=== PATIENT | female | born 1960 | race Caucasian/White ===

== ENCOUNTER 2016-05-30 22:10 | Emergency (ER) | payer BC, OTHER ==
[2016-05-30] MEDS ORDERED: Pepcid 20 MG VIAL IV ONE ×2 (23:05→23:38)
--- NOTE | 2016-05-30 23:10 | ERPHSYRPT ---
- History of Present Illness Time Seen by Provider: 05/30/16 23:06 Source: patient Exam Limitations: no limitations Patient Subjective Stated Complaint: Pt sts seen at clinic today for sore, earache, headache today. Given a shot of steroids at clinic. Sts that her tongue has swollen since clinic visit. Sts difficulty swallowing. Denies shortness of breath. Sts pain 10/10 in throat. Triage Nursing Assessment: Pt alert, oriented, answers all questions appropriately. Skin p/w/d, resps non-labored. Pt ambulatory to tx room, steady gait noted. SPO2 96% room air. No exudate noted to throat, posterior pharynx reddened. Tongue appears swollen. Pt able to control secretions. Lungs CTA bilat non-labored. Physician History: Is a 56-year-old white female with history of depression and insomnia. She arrives with complaint that she feels like her tongue is swelling she apparently has been complaining of headaches sore throat symptoms going on for several days she was seen at the clinic today given a shot of steroids told she had a viral syndrome She states that she feels as if her tongue is of swelling and it hurts to swallow. Past medical history includes depression, insomnia. Past surgical history includes hysterectomy and orthopedic surgery. Patient is on hydrocodone 7.5/325 at home last filled on the May 09, 2016 # 60 tablets. Patient is also on Xanax 2 mg #30 last filled May 13, 2016 Timing/Duration: today Severity: moderate Modifying Factors: Improves With: other (receives steroid injection today) Associated Symptoms: headaches, other (sore throat and headache seen in office today) Allergies/Adverse Reactions: No Known Drug Allergies Allergy (Verified 05/30/16 22:37) Home Medications: Alprazolam [Xanax 0.5 mg] 0.5 mg PO DAILY PRN 02/03/15 [History] Duloxetine HCl 30 mg [Cymbalta 30 MG Capsule] 90 mg PO DAILY 02/03/15 [ History] Hydrocodone Bit/Acetaminophen [[place] 5-325 Tablet] 1 each PO Q6H PRN 05/30/16 [ History] Trazodone HCl 100 mg PO HS 05/30/16 [History] Hx Tetanus, Diphtheria Vaccination/Date Given: No Hx Influenza Vaccination/Date Given: Yes Hx Pneumococcal Vaccination/Date Given: No - Review of Systems Constitutional: No Fever, No Chills Eyes: No Symptoms Ears, Nose, & Throat: Throat Pain, Painful Swallowing, Other (patient feels as if her tongue is swelling), No Ear Pain, No Ear Discharge, No Hearing Changes, No Tinnitus, No Nose Pain, No Nose Congestion, No Nose Discharge, No Sinus Drainage, No Epistaxis, No Mouth Pain, No Mouth Swelling, No Loose Teeth, No Throat Swelling, No Hoarse, No Snoring, No Stridor Respiratory: No Cough, No Dyspnea Cardiac: No Chest Pain, No Edema, No Syncope Abdominal/Gastrointestinal: No Abdominal Pain, No Nausea, No Vomiting, No Diarrhea Genitourinary Symptoms: No Dysuria Musculoskeletal: No Back Pain, No Neck Pain Skin: No Rash Neurological: No Dizziness, No Focal Weakness, No Sensory Changes Psychological: No Symptoms Endocrine: No Symptoms All Other Systems: Reviewed and Negative - Past Medical History Pertinent Past Medical History: Yes Psycho-Social History: Depression Other Medical History: INSOMNIA - Past Surgical History Past Surgical History: Yes Musculoskeletal: Orthopedic Surgery Female Surgical History: Hysterectomy - Social History Smoking Status: Never smoker Exposure to second hand smoke: No Drug Use: none Patient Lives Alone: No - Female History Hx Last Menstrual Period: hyst - Nursing Vital Signs Nursing Vital Signs: Initial Vital Signs Temperature 99.5 F Temperature Source Oral Pulse Rate 76 Respiratory Rate 16 Blood Pressure [Left Arm] 130/76 Pain Intensity 5 - Physical Exam General Appearance: no apparent distress, alert Eye Exam: PERRL/EOMI, eyes nml inspection Ears, Nose, Throat Exam: normal ENT inspection, TMs normal, pharynx normal, moist mucous membranes Neck Exam: normal inspection, non-tender, supple, full range of motion Respiratory Exam: normal breath sounds, lungs clear, No respiratory distress Cardiovascular Exam: regular rate/rhythm, normal heart sounds, normal peripheral pulses Gastrointestinal/Abdomen Exam: soft, normal bowel sounds, No tenderness, No mass Back Exam: normal inspection, normal range of motion, No CVA tenderness, No vertebral tenderness Extremity Exam: normal inspection, normal range of motion, pelvis stable Neurologic Exam: alert, oriented x 3, cooperative, normal mood/affect, nml cerebellar function, nml station & gait, sensation nml, No motor deficits Skin Exam: normal color, warm, dry, No rash Lymphatic Exam: No adenopathy SpO2 Interpretation: normal (98%) SpO2: 98 Oxygen Delivery: Room Air - Course Nursing assessment & vital signs reviewed: Yes Ordered Tests: Active Orders 24 hr Category Date Time Status IV Insertion STAT Care 05/30/16 23:05 Active CULTURE, THROAT Stat Lab 05/30/16 23:20 Received STREP SCREEN-BETA A Stat Lab 05/30/16 23:20 Completed Medication Summary Discontinued Medications Generic Name Dose Route Start Last Admin Trade Name Rasheedq PRN Reason Stop Dose Admin Diphenhydramine HCl 25 mg 05/31/16 00:51 05/31/16 01:23 Benadryl 50 Mg/Ml IM 05/31/16 00:52 Not Given STAT ONE Diphenhydramine HCl Confirm 05/31/16 01:08 Benadryl 50 Mg/Ml Administered 05/31/16 01:09 Dose 50 mg .ROUTE .STK-MED ONE Diphenhydramine HCl 25 mg 05/31/16 01:16 05/31/16 01:22 Benadryl 50 Mg/Ml IV 05/31/16 01:17 25 mg STAT ONE Administration Famotidine 20 mg 05/30/16 23:05 05/30/16 23:42 Pepcid 20 Mg Vial IV 05/30/16 23:06 20 mg STAT ONE Administration Famotidine Confirm 05/30/16 23:38 Pepcid 20 Mg Vial Administered 05/30/16 23:39 Dose 20 mg IV .STK-MED ONE Morphine Sulfate 4 mg 05/31/16 00:52 05/31/16 01:12 Morphine Sulfate 4 Mg Inj IV 05/31/16 00:53 4 mg STAT ONE Administration Morphine Sulfate Confirm 05/31/16 01:08 Morphine Sulfate 4 Mg Inj Administered 05/31/16 01:09 Dose 4 mg .ROUTE .STK-MED ONE Lab/Rad Data: Laboratory Results 05/30/16 05/30/16 Range/Units 23:20 23:20 Streptococcus Screen NEGATIVE (Negative) Resp Infection Panel NEGATIVE (Negative) - Progress Progress: improved Progress Note: 05/30/16 23:09 This is a 56-year-old white female who arrives with complaints that she feels like her tongue is swelling she apparently had been complaining of a headache and sore throat was given steroid injection at the local clinic she states she did not have her throat swabbed. On physical examination patient airway is clear tongue does not appear to be swollen at my examination. Will go ahead and give patient Pepcid 20 mg IV will go ahead and obtain respiratory swab as well as strep test. Patient is on [place] 7.5/325 chronically she received a refill of this on May 09, 2016. 05/31/16 01:24 Patient feeling better after Pepcid IV 20 mg, Benadryl 25 mg IV and morphine 4 mg IV. Patient states she still has some pain in her throat but is improved pain as well as swallowing. No obvious swelling of the patient's tongue. Will send patient home with Pepcid 20 mg orally twice a day for 5 days. Patient to continue Benadryl 25-50 mg orally every 6 hours as needed for 2-3 days. Patient has narcotic analgesia at home Patient to follow-up with your family doctor - Departure Time of Disposition: 01:26 Departure Disposition: Home Clinical Impression: Throat pain, Tongue swelling, rule out allergy to Solu-Medrol Condition: Fair Critical Care Time: No Referrals: JAYY GALLEGOS [Primary Care Provider] - Additional Instructions: Return home. Plenty of fluids. Benadryl 25-50 mg orally every 6 hours as needed for 2-3 days. Pepcid 20 mg orally twice a day for 5 days Pain medications as prescribed by your family doctor Follow-up with your family doctor. Return for acute distress or for severe symptoms Prescriptions: Famotidine 20 mg [Pepcid 20 MG] 20 mg PO BID #10 tablet
[2016-05-31] MEDS ORDERED: MORPHINE SULFATE 4 MG INJ IV ONE (00:52)
[2016-05-31] MEDS ORDERED: MORPHINE SULFATE 4 MG INJ ONE (01:08)
[2016-05-31] MEDS ORDERED: BENADRYL 50 MG/ML ONE (01:08)
[2016-05-31] MEDS: BENADRYL 50 MG/ML IM ONE ×2 (01:11→01:23)
[2016-05-31] MEDS ORDERED: BENADRYL 50 MG/ML IV ONE (01:16)
[2016-05-31 01:20] VITALS: PULSE 76
[2016-05-31 01:51] VITALS: BP 138/82; O2SAT 97
== END 2016-05-31 01:55 | disposition home or self-care (01) ==
LOC: ED 22:10
DX: R07.0 Pain in throat (principal); R22.0 Localized swelling, mass and lump, head; T38.0X5A Adverse effect of glucocorticoids and synthetic analogues, initial encounter
CPT/HCPCS: 36000; 87070; 87430; 87631; 96374; 96375; 99283; 99284; J1200; J2270

== ENCOUNTER 2016-11-05 08:30 | Day surgery (SDC) | payer BC ==
[~2016-11-05 08:30] MED LIST: DIPRIVAN 200 MG/20 ML IV ONE; SUBLIMAZE 100 MCG/2 ML IV ONE
[2016-11-05] MEDS ORDERED: Lactated Ringers 1,000 ML IV ONE (08:51)
[2016-11-05] MEDS ORDERED: Zofran 4 MG/2 ML VIAL IV PRN (09:00)
[2016-11-05] MEDS ORDERED: Lactated Ringers 1,000 ML IV SCH (09:00)
[2016-11-05] MEDS ORDERED: Ak-Dilate OPHTHALMIC*** 0.71 ML, Cyclogyl 1% OPHTH SOL 5 ML 0.71 ML, GATIFLOXACIN 0.5% ... OP ONE ×4 (09:00)
[2016-11-05] MEDS ORDERED: ACETAZOLAMIDE 250 MG TABLET PO ONE (09:00)
[2016-11-05] MEDS ORDERED: TETRACAINE 0.5% STERI-UNIT SOL OP ONE ×2 (09:00)
[2016-11-05] MEDS ORDERED: BETADINE 5% OPHTHALMIC 30 ML OP ONE (09:00)
[2016-11-05] MEDS ORDERED: BSS 500 ML, Fortaz/Tazicef 1 GM** 0.2 G IO ONE ×2 (10:00)
[2016-11-05] MEDS ORDERED: LIDOCAINE HCL 1% AMPUL 5 ML IJ ONE (10:00)
[2016-11-05] MEDS ORDERED: Epinephrine Preservative Free 1 MG/ML INTRAOP ONE (10:00)
[2016-11-05 12:41] VITALS: O2SAT 100
[2016-11-05 12:45] VITALS: BP 146/85; PULSE 75
--- NOTE | 2016-11-05 13:38 | OP ---
DATE/TIME OF OPERATION: 11/05/2016 1019 PREOPERATIVE DIAGNOSIS: Senile cataract of left eye. POSTOPERATIVE DIAGNOSIS: Senile cataract of left eye. SURGEON: James Lala MD TRAPEZE ARTIST: NONE OPERATION: Cataract extraction of left eye with an intraocular lens implant STANDARD __X___ COMPLEX ANESTHESIA: ___X___ Monitored anesthesia care in combination with topical and intra-cameral anesthesia (because of the established specific risk of reflux, arrhythmias, or an anxiety attack associated with ocular manipulation as well as difficulty of the security public safety officer to manage such potentially catastrophic events while simultaneously attempting to complete the surgical procedure, it was deemed necessary for the patient's safety to have an anesthesiologist or a nurse internal medicine hospitalist present during the procedure whenever possible. The anesthesiologist or the nurse internal medicine hospitalist was utilized to monitor and regulate the intravenous sedation of the patient, so the patient was cooperative, relaxed, and comfortable). Topical anesthesia using Tetracaine eye drops together with intra cameral anesthesia using Lidocaine 1% MPF. The nurse was utilized to monitor the patient. COMPLICATIONS: None. BLOOD LOSS: None INDICATIONS: The patient is undergoing cataract surgery in the hopes of eliminating the visual complaints and difficulty. PROCEDURE: After arriving at the facility's outpatient surgery area, an IV was started; the patient was given 5 mg of p.o. Versed. (If an anesthesia provider was not monitoring the patient) The patient was then given topical anesthetic Tetracaine eye drops. A cotton pellet was soaked into a solution of a combination of Zymaxid 0.5%, Noe-Synephrine 2.5% and Ocufen (other drops might have been substituted referenced in the patient's record). The pellet was inserted by the RN into the lower conjunctival cul-de-sac with a sterile forceps and left for 20 minutes. The pellet was then removed by the RN with a sterile forceps before taking the patient to the operating room. The preoperative area nurse identified the patient and marked the correct eye to be operated on. I identified the correct eye to be operated on and marked it appropriately in the outpatient surgery area. The patient was then taken into the operating room. Tetracaine eye drops were installed again in the correct eye. The eyelids and the lashes and the lid margins were scrubbed with Betadine solution. One drop of the diluted Betadine solution was placed in the conjunctival cul-de-sac for 45 seconds and then was irrigated. A drop of Tetracaine Gel was placed in the conjunctival cul-de-sac. The patient's forehead was taped to secure it during the procedure. The patient was monitored. The patient was then draped in the usual way for this procedure. An eye speculum was used to separate the eyelids. The eye was then fixated and a temporal 2.5 mm incision was made in the clear cornea temporally at the limbus. Through the incision, 0.25 cc of 1% non-preserved lidocaine was injected into the anterior chamber for intracameral anesthesia. The anterior chamber was then filled with viscoelastic. The pupil was small. I felt that it would be safer to mechanically dilate the pupil. A Malyugin ring was used at this point which dilated the pupil. That was removed at the end of the procedure prior to aspiration of the viscoelastic from the anterior chamber and posterior to the intraocular lens implant. The cataract had a great amount of cortical changes. That rendered seeing the anterior capsule difficult for a safe performance of an anterior capsulotomy. I injected an air bubble into the anterior chamber. I then injected 1 ML of vision blue solution into the anterior chamber. The vision blue solution was irrigated from the anterior chamber after 30 seconds. The anterior capsule was stained which facilitated performing the anterior capsulotomy safely. After that was completed, a cystotome was introduced into the anterior chamber and a round anterior capsulotomy was performed. The capsule was removed by a forceps. Hydrodissection was next carried utilizing a 25-gauge cannula and balanced salt solution to delineate the cortical material from the capsule and the nucleus from the cortical material. The nucleus was rotated freely into the capsular bag with no difficulty. The phaco tip of the [employer] Phacoemulsifier was introduced into the anterior chamber and two grooves were made into the nucleus 90 degrees apart. Using two spatulas resulted into the nucleus being fractured into four quadrants. The phaco tip was then used to remove each quadrant of the nucleus. Viscoelastic was used during this process to protect the corneal endothelium. Once the entire nucleus was removed, the phaco tip then was removed and the irrigation tip was introduced into the eye and the cortex was removed. The posterior capsule was polished. It was noticed that there was a tear into the posterior capsule with few vitrious strands into the pupil plan. An anterior vitrectomy was performed. A 13.50 diopter, SN60WF, posterior chamber lens implant, was inspected and found to be grossly normal. The implant was inserted into the implant injector cartridge; Viscoelastic again was introduced into the anterior chamber, which filled the capsular bag. The implant injector's cartridge tip was placed at the limbal wound and the posterior chamber implant was released into the capsular bag and rotated appropriately. The implant was found to be into the capsular bag and it was centered. __X___ 0.2 ml of Tri-Moxi was introduced via 27 gauge cannula into the vitreous cavity through the ciliary processes. Viscoelastic was aspirated from the anterior chamber and posterior to the intraocular lens implant from the capsular bag using the irrigating tip. The anterior chamber was irrigated and filled with 5 cc antibiotic solution (500 cc of BSS plus 2 ml of Fortaz 100 mg/ml) ( if patient was not allergic to the medication). The lips of the corneal incision were hydrated using BSS solution. The anterior chamber was checked and found to be water tight. One drop each of antibiotic, steroid and NSAID drops (refer to chart for drops used) were placed in the conjunctival cul-de-sac of the operated eye. Patient tolerated the procedure quite well and left the operating room in satisfactory condition. DISCHARGE SUMMARY: The patient was released in stable condition. The patient and those with the patient were given an instruction sheet as of how to care for the eye after surgery as well as counseling on any abnormal laboratory studies by the postoperative RN. The patient was also given an appointment card for follow-up in the office and is to call immediately for any difficulties including but not limited to pain in the eye, decreased vision, discharge from the eye, headache and or fever. DISCHARGE DIAGNOSIS: Pseudophakia of left eye
== END 2016-11-05 12:00 | disposition home or self-care (01) ==
LOC: SDC 08:30
PROVIDERS: ATTEND Ophthalmology
PROC: 08RK3JZ Replacement of Left Lens with Synthetic Substitute, Percutaneous Approach (ICD-10-PCS; principal; 2016-11-05)
PROC: 08B53ZZ Excision of Left Vitreous, Percutaneous Approach (ICD-10-PCS; 2016-11-05)
DX: H25.9 Unspecified age-related cataract (principal); F32.9 Major depressive disorder, single episode, unspecified; M19.90 Unspecified osteoarthritis, unspecified site
CPT/HCPCS: 00142; C1780; J0171; J2704; J3010; A9270-GY

== ENCOUNTER 2017-01-07 12:21 | Day surgery (SDC) | payer BC ==
[~2017-01-07 12:21] MED LIST changes: +ACETAZOLAMIDE 250 MG TABLET PO ONE; +Ak-Dilate OPHTHALMIC*** 0.71 ML, Cyclogyl 1% OPHTH SOL 5 ML 0.71 ML, GATIFLOXACIN 0.5% ... OP ONE; -DIPRIVAN 200 MG/20 ML IV ONE; +Lactated Ringers 1,000 ML IV ONE; +Lactated Ringers 1,000 ML IV SCH; -SUBLIMAZE 100 MCG/2 ML IV ONE; +TETRACAINE 0.5% STERI-UNIT SOL OP ONE; +Zofran 4 MG/2 ML VIAL IV PRN
[2017-01-07] MEDS ORDERED: DIPRIVAN 200 MG/20 ML IV ONE (12:22)
[2017-01-07] MEDS ORDERED: BETADINE 5% OPHTHALMIC 30 ML OP ONE (14:00)
[2017-01-07] MEDS ORDERED: BSS 500 ML, Fortaz/Tazicef 1 GM** 0.2 G IO ONE ×2 (14:00)
[2017-01-07] MEDS ORDERED: Epinephrine Preservative Free 1 MG/ML INTRAOP ONE (14:00)
[2017-01-07] MEDS ORDERED: LIDOCAINE HCL 1% AMPUL 5 ML IJ ONE (14:00)
[2017-01-07 14:28] VITALS: O2SAT 98
[2017-01-07 14:57] VITALS: BP 138/86; PULSE 99
--- NOTE | 2017-01-08 08:36 | OP ---
DATE/TIME OF OPERATION: 01/07/2017 1321 TIME DICTATED: 1522 PREOPERATIVE DIAGNOSIS: Senile cataract of right eye. POSTOPERATIVE DIAGNOSIS: Senile cataract of right eye. SURGEON: James Lala MD INTERVENTION SPECIALIST: None. OPERATION: Cataract extraction of right eye with an intraocular lens implant. STANDARD __X___ COMPLEX ANESTHESIA: MAC. ___X___ Monitored anesthesia care in combination with topical and intra-cameral anesthesia (because of the established specific risk of reflux, arrhythmias, or an anxiety attack associated with ocular manipulation as well as difficulty of the enamel burner to manage such potentially catastrophic events while simultaneously attempting to complete the surgical procedure, it was deemed necessary for the patient's safety to have an anesthesiologist or a nurse dark room attendant present during the procedure whenever possible. The anesthesiologist or the nurse dark room attendant was utilized to monitor and regulate the intravenous sedation of the patient, so the patient was cooperative, relaxed, and comfortable). Topical anesthesia using Tetracaine eye drops together with intra cameral anesthesia using Lidocaine 1% MPF. The nurse was utilized to monitor the patient. ANESTHESIA PROVIDER: Johnny Ribera CRNA. COMPLICATIONS: None. BLOOD LOSS: None. INDICATIONS: The patient is undergoing cataract surgery in the hopes of eliminating the visual complaints and difficulty. PROCEDURE: After arriving at the facility's outpatient surgery area, an IV was started; the patient was given 5 mg of p.o. Versed. (If an anesthesia provider was not monitoring the patient) The patient was then given topical anesthetic Tetracaine eye drops. A cotton pellet was soaked into a solution of a combination of Zymaxid 0.5%, Noe-Synephrine 2.5% and Ocufen (other drops might have been substituted referenced in the patient's record). The pellet was inserted by the RN into the lower conjunctival cul-de-sac with a sterile forceps and left for 20 minutes. The pellet was then removed by the RN with a sterile forceps before taking the patient to the operating room. The preoperative area nurse identified the patient and marked the correct eye to be operated on. I identified the correct eye to be operated on and marked it appropriately in the outpatient surgery area. The patient was then taken into the operating room. Tetracaine eye drops were installed again in the correct eye. The eyelids and the lashes and the lid margins were scrubbed with Betadine solution. One drop of the diluted Betadine solution was placed in the conjunctival cul-de-sac for 45 seconds and then was irrigated. A drop of Tetracaine Gel was placed in the conjunctival cul-de-sac. The patient's forehead was taped to secure it during the procedure. The patient was monitored. The patient was then draped in the usual way for this procedure. An eye speculum was used to separate the eyelids. The eye was then fixated and a temporal 2.5 mm incision was made in the clear cornea temporally at the limbus. Through the incision, 0.25 cc of 1% non-preserved lidocaine was injected into the anterior chamber for intracameral anesthesia. The anterior chamber was then filled with viscoelastic. The pupil was small. I felt that it would be safer to mechanically dilate the pupil. A Malyugin ring was used at this point which dilated the pupil. That was removed at the end of the procedure prior to aspiration of the viscoelastic from the anterior chamber and posterior to the intraocular lens implant. The cataract had a great amount of cortical changes. That rendered seeing the anterior capsule difficult for a safe performance of an anterior capsulotomy. I injected an air bubble into the anterior chamber. I then injected 1 ML of vision blue solution into the anterior chamber. The vision blue solution was irrigated from the anterior chamber after 30 seconds. The anterior capsule was stained which facilitated performing the anterior capsulotomy safely. After that was completed, a cystotome was introduced into the anterior chamber and a round anterior capsulotomy was performed. The capsule was removed by a forceps. Hydrodissection was next carried utilizing a 25-gauge cannula and balanced salt solution to delineate the cortical material from the capsule and the nucleus from the cortical material. The nucleus was rotated freely into the capsular bag with no difficulty. The phaco tip of the [employer] Phacoemulsifier was introduced into the anterior chamber and two grooves were made into the nucleus 90 degrees apart. Using two spatulas resulted into the nucleus being fractured into four quadrants. The phaco tip was then used to remove each quadrant of the nucleus. Viscoelastic was used during this process to protect the corneal endothelium. Once the entire nucleus was removed, the phaco tip then was removed and the irrigation tip was introduced into the eye and the cortex was removed. The posterior capsule was polished. It was noticed that there was a tear into the posterior capsule with few vitreous strands into the pupil plan. An anterior vitrectomy was performed. A 14.50 diopter, SN60WF, posterior chamber lens implant, was inspected and found to be grossly normal. The implant was inserted into the implant injector cartridge; Viscoelastic again was introduced into the anterior chamber, which filled the capsular bag. The implant injector's cartridge tip was placed at the limbal wound and the posterior chamber implant was released into the capsular bag and rotated appropriately. The implant was found to be into the capsular bag and it was centered. __X__ 0.2 ml of Tri-Moxi was introduced via 27 gauge cannula into the vitreous cavity through the ciliary processes. Viscoelastic was aspirated from the anterior chamber and posterior to the intraocular lens implant from the capsular bag using the irrigating tip. The anterior chamber was irrigated and filled with 5 cc antibiotic solution (500 cc of BSS plus 2 ml of Fortaz 100 mg/ml) ( if patient was not allergic to the medication). The lips of the corneal incision were hydrated using BSS solution. The anterior chamber was checked and found to be water tight. One drop each of antibiotic, steroid and NSAID drops (refer to chart for drops used) were placed in the conjunctival cul-de-sac of the operated eye. Patient tolerated the procedure quite well and left the operating room in satisfactory condition. DISCHARGE SUMMARY: The patient was released in stable condition. The patient and those with the patient were given an instruction sheet as of how to care for the eye after surgery as well as counseling on any abnormal laboratory studies by the postoperative RN. The patient was also given an appointment card for follow-up in the office and is to call immediately for any difficulties including but not limited to pain in the eye, decreased vision, discharge from the eye, headache and or fever. DISCHARGE DIAGNOSIS: Pseudophakia of right eye.
== END 2017-01-07 14:50 | disposition home or self-care (01) ==
LOC: SDC 12:21
PROVIDERS: ATTEND Ophthalmology
PROC: 08RJ3JZ Replacement of Right Lens with Synthetic Substitute, Percutaneous Approach (ICD-10-PCS; principal; 2017-01-07)
DX: H25.9 Unspecified age-related cataract (principal)
CPT/HCPCS: 00142; C1780; J0171; J2704; A9270-GY

== ENCOUNTER 2017-04-13 19:50 | Emergency (ER) | payer BC ==
--- NOTE | 2017-04-13 20:27 | ERPHSYRPT ---
- History of Present Illness Time Seen by Provider: 04/13/17 20:24 Source: patient Exam Limitations: no limitations Patient Subjective Stated Complaint: pt states she fell in her kitchen and hit on her rt buttock. c/o pain radiating to her lt lower back now. Triage Nursing Assessment: pt alert and oriented. answers qeustions approp. respirations nonlabored with lungs cta. skin pink warm and dry. no redness or bruising noted to rt buttock. pt ambulated from wheelchair to stretcher with no assist. slow limping gait noted. Physician History: pt states she fell in her kitchen and hit on her rt buttock. c/o pain radiating to her lt lower back now. Occurred: just prior to arrival Reason for Fall: slipped (on snow), tripped Injuries/Pain Location: pelvis Loss of Consciousness: no loss of consciousness Allergies/Adverse Reactions: No Known Drug Allergies Allergy (Verified 01/07/17 12:28) Home Medications: Alprazolam [Xanax 0.5 mg] 1 mg PO TIDPRN PRN 02/03/15 [History] Duloxetine HCl 30 mg [Cymbalta 30 MG Capsule] 90 mg PO DAILY 02/03/15 [ History] Trazodone HCl 200 mg PO HS 05/30/16 [History] Aripiprazole [Abilify] 5 mg PO DAILY 10/30/16 [History] Hydrocodone/Acetaminophen [Vicodin 5-300 mg Tablet] 1 tab PO Q6HPRN PRN [History] Hx Tetanus, Diphtheria Vaccination/Date Given: No Hx Influenza Vaccination/Date Given: No Hx Pneumococcal Vaccination/Date Given: No Immunizations Up to Date: No - Review of Systems Constitutional: No Symptoms Eyes: No Symptoms Ears, Nose, & Throat: No Symptoms Respiratory: No Symptoms Cardiac: No Symptoms Musculoskeletal: Back Pain, Fall - Past Medical History Pertinent Past Medical History: Yes Neurological History: No Pertinent History ENT History: Cataracts Cardiac History: No Pertinent History Respiratory History: No Pertinent History Endocrine Medical History: No Pertinent History Musculoskeletal History: Degenerative Disk Disease, Osteoarthritis GI Medical History: No Pertinent History History: No Pertinent History Psycho-Social History: Depression Female Reproductive Disorders: No Pertinent History Other Medical History: INSOMNIA - Past Surgical History Past Surgical History: Yes Neuro Surgical History: No Pertinent History Cardiac: No Pertinent History Respiratory: No Pertinent History Gastrointestinal: No Pertinent History Genitourinary: No Pertinent History Musculoskeletal: Orthopedic Surgery Female Surgical History: Hysterectomy, Tubal Ligation Other Surgical History: left knee replacement x2, Left IOL - Social History Smoking Status: Never smoker Exposure to second hand smoke: No Drug Use: none Patient Lives Alone: No - Female History Hx Last Menstrual Period: hyster - Nursing Vital Signs Nursing Vital Signs: Initial Vital Signs Temperature 98.7 F 04/13/17 20:02 Pulse Rate 86 04/13/17 20:02 Respiratory Rate 16 04/13/17 20:02 Blood Pressure 150/81 04/13/17 20:02 O2 Sat by Pulse Oximetry 97 04/13/17 20:02 Pain Scale Pain Intensity 9 - [place] Coma Score Best Eye Response ([place]): (4) open spontaneously Best Verbal Response (Sadaf): (5) oriented Best Motor Response (Sadaf): (6) obeys commands Sad[place] Total: 15 - Physical Exam General Appearance: no apparent distress Head Injury: no evidence of injury Neck Exam: supple Back Exam: decreased range of motion, muscle spasm, No point tenderness Extremity Exam: normal inspection, normal range of motion SpO2: 97 Oxygen Delivery: Room Air - Course Nursing assessment & vital signs reviewed: Yes - Radiology Exams Pelvis X-ray Interpretation: Reviewed by me, Negative, No Fracture Ordered Tests: Active Orders 24 hr Category Date Time Status HIPS YASMINE(2V) INCL PEL IF DONE Stat Exams 04/13/17 20:13 Taken - Progress Progress: improved, pain not gone completely Counseled pt/family regarding: diagnosis, need for follow-up, rad results - Departure Time of Disposition: 20:47 Departure Disposition: Home Clinical Impression: Lumbalgia Qualifiers: Chronicity: acute Back pain laterality: right Sciatica presence: unspecified whether sciatica present Qualified Code(s): M54.5 - Low back pain Fall due to ice or snow Qualifiers: Encounter type: initial encounter Qualified Code(s): W00.9XXA - Unspecified fall due to ice and snow, initial encounter Condition: Stable Critical Care Time: No Referrals: JAYY GALLEGOS [Primary Care Provider] - Instructions: Contusion, Prevent Falls Additional Instructions: SPRAINS/STRAINS/CONTUSIONS 1. Rest the affected area as much as possible for the next few days. 2. Apply ice to the affected area for 20-30 minutes at a time, several times a day. 3. If you receive an elastic wrap, wear it only while awake for comfort and support. Re-wrap the elastic wrap if it feels too tight or too loose. 4. If swelling is present, elevate the affected part above the level of the heart for at least 2 to 3 days. 5. Use splints, slings, or crutches as instructed. 6. Watch for severe swelling, coldness, numbness, and discoloration of the fingers and toes. See your family physician or return to the emergency department if any of these are noted.
[2017-04-13] MEDS ORDERED: TORAdol 30 mg Injection IM ONE (20:45)
[2017-04-13] MEDS ORDERED: TORAdol 30 mg Injection ONE (20:48)
[2017-04-13 21:06] VITALS: BP 148/70; PULSE 78; O2SAT 98
--- NOTE | 2017-04-13 21:07 | XRAY ---
Indication: Pain following fall. Comparison: Left hip exam July 17, 2011. AP pelvis and 2 views of the left and right hip demonstrates tiny bilateral superior acetabular spurring and bilateral pelvic phleboliths. No other bony, articular, or soft tissue abnormalities.
== END 2017-04-13 21:06 | disposition home or self-care (01) ==
LOC: ED 19:50
DX: M54.5 Low back pain (principal); W00.0XXA Fall on same level due to ice and snow, initial encounter; Y92.010 Kitchen of single-family (private) house as the place of occurrence of the external cause; Z79.891 Long term (current) use of opiate analgesic; Z79.899 Other long term (current) drug therapy
CPT/HCPCS: 73521; 99283; J1885

== ENCOUNTER 2023-03-24 21:33 | Emergency (ER) | payer MEDICARE ==
--- NOTE | 2023-03-24 21:41 | ERPHSYRPT ---
- History of Present Illness Time Seen by Provider: 03/24/23 21:41 Source: patient Exam Limitations: no limitations Physician History: This is an obese 63-year-old white female patient of nurse practitioner Tae and orthopedic surgeon Dr. Martinez who presents to the emergency department with increased swelling tenderness and warmth in her right lower extremity following a right knee replacement that was performed 4 days ago at [facility]. Patient is currently on an antibiotic. She also is on oxycodone pain medicine and last took a dose at 1840 this evening. Patient did begin physical therapy today. She was concerned because she, following physical therapy, noticed increased warmth, burning sensation and increased swelling and bruising to the area behind her knee and in the calf on the right side. She does not have a cough. She is not short of breath. Patient is not on any anticoagulation therapy but is taking an aspirin today. Patient has a history of depression, anxiety, degenerative disc disease and osteoarthritis as well as insomnia. Method of Injury: other (Postsurgical) Occurred: this afternoon, this evening Severity of Pain-Max: mild (To moderate) Severity of Pain-Current: mild (To moderate) Lower Extremities Pain: leg: right (Lower leg), knee: right, ankle: right, other: right (Increased warmth, burning sensation, swelling and bruising to the right lower extremity) Modifying Factors: Improves With: movement Associated Symptoms: none Allergies/Adverse Reactions: aspirin [From [facility]] Adverse Reaction (Intermediate, Verified 03/24/23 21:53) Vomiting citric acid [From [facility]] Adverse Reaction (Intermediate, Verified 03/24/23 21:53) Vomiting sodium bicarbonate [From [facility]] Adverse Reaction (Intermediate, Verified 03/24/23 21:53) Vomiting Home Medications: ALPRAZolam [Xanax 0.5 mg] 1 mg PO TIDPRN PRN 02/03/15 [History] Duloxetine HCl 30 mg [Cymbalta 30 MG Capsule] 90 mg PO DAILY 02/03/15 [History] Trazodone HCl 200 mg PO HS 05/30/16 [History] Oxycodone / APAP 10/325 mg [Oxycodone-Acetaminophen 10-325] 1 tab PO DAILY PRN PRN 03/24/23 [History] Hx Tetanus, Diphtheria Vaccination/Date Given: No Hx Influenza Vaccination/Date Given: No Hx Pneumococcal Vaccination/Date Given: No Travel Risk - International Travel Have you traveled outside of the country in past 3 weeks: No - Coronavirus Screening Are you exhibiting any of the following symptoms?: No Close contact with a COVID-19 positive Pt in past 14-21 Days: No - Review of Systems Constitutional: No Symptoms Eyes: No Symptoms Ears, Nose, & Throat: No Symptoms Respiratory: No Symptoms Cardiac: No Symptoms Abdominal/Gastrointestinal: No Symptoms Genitourinary Symptoms: No Symptoms Musculoskeletal: Other (Increased bruising swelling warmth right lower extremity) Skin: Other (See above musculoskeletal section) Psychological: No Symptoms Endocrine: No Symptoms Hematologic/Lymphatic: No Symptoms Immunological/Allergic: No Symptoms All Other Systems: Reviewed and Negative - Past Medical History Pertinent Past Medical History: Yes Neurological History: No Pertinent History ENT History: Cataracts Cardiac History: No Pertinent History Respiratory History: No Pertinent History Endocrine Medical History: No Pertinent History Musculoskeletal History: Degenerative Disk Disease, Osteoarthritis GI Medical History: No Pertinent History History: No Pertinent History Psycho-Social History: Depression Female Reproductive Disorders: No Pertinent History Other Medical History: INSOMNIA - Past Surgical History Past Surgical History: Yes Neuro Surgical History: No Pertinent History Cardiac: No Pertinent History Respiratory: No Pertinent History Gastrointestinal: No Pertinent History Genitourinary: No Pertinent History Musculoskeletal: Orthopedic Surgery Female Surgical History: Hysterectomy, Tubal Ligation Other Surgical History: left knee replacement x2, Left IOL - Social History Smoking Status: Never smoker Exposure to second hand smoke: No Drug Use: none Patient Lives Alone: No - Nursing Vital Signs Nursing Vital Signs: Initial Vital Signs Temperature 97.3 F 03/24/23 21:38 Pulse Rate 102 H 03/24/23 21:38 Respiratory Rate 20 03/24/23 21:38 Blood Pressure 156/88 03/24/23 21:38 O2 Sat by Pulse Oximetry 95 03/24/23 21:38 Pain Scale Pain Intensity 5 - Physical Exam General Appearance: no apparent distress, alert, anxiety, obese Eyes, Ears, Nose, Throat Exam: normal ENT inspection, moist mucous membranes Neck Exam: normal inspection, non-tender, supple, full range of motion Cardiovascular/Respiratory Exam: chest non-tender, no respiratory distress Gastrointestinal/Abdominal Exam: non-tender Back Exam: normal inspection, normal range of motion, No CVA tenderness, No vertebral tenderness Hips Exam: bilateral: non-tender, normal inspection, normal range of motion, no evidence of injury Legs Exam: right leg: ecchymosis (Lower leg below the knee), soft tissue tenderness, swelling, left leg: non-tender, normal inspection, normal range of motion, no evidence of injury Knees Exam: right knee: ecchymosis, soft tissue tenderness, swelling, other (Bandages overlying anterior right knee) Ankle Exam: right ankle: soft tissue tenderness, swelling Foot Exam: bilateral foot: non-tender, normal inspection, normal range of motion, no evidence of injury Neuro/Tendon Exam: normal sensation, normal motor functions, normal tendon functions, responds to pain, no evidence tendon injury Mental Status Exam: alert, oriented x 3, cooperative Skin Exam: ecchymosis, other (Swelling skin below the right knee) SpO2 Interpretation: normal SpO2: 95 O2 Delivery: Room Air - Course Nursing assessment & vital signs reviewed: Yes Ordered Tests: Active Orders 24 hr Category Date Time Status VENOUS UNILAT/LIMITED EXTREMIT [US] Stat Exams 03/24/23 22:07 Ordered - Progress Progress Note: 03/24/23 22:37 This patient's medical issue is 1 of low complexity the level complex in the workup performed is based on review the patient's past medical history, review the patient's medication list, review the patient's drug allergy list, history present illness and physical findings on examination. I do not think the D- dimer is necessary in this patient. The patient's D-dimer is likely going to be elevated since she is in the recent postoperative period. We will order a venous Doppler of the right lower extremity to evaluate for DVT. Patient is already on oral antibiotics. Her first treatment/session of physical therapy was this morning and this may have contributed to the the patient's symptoms. 03/24/23 23:01 The employment law specialist technologist reported that the ultrasound of the right lower extremity is negative for DVT. Counseled pt/family regarding: diagnosis, need for follow-up, rad results Medical Desision Making - Diagnostic Testing Diagnostic test were ordered, analyzed, and reviewed by me: Yes Radiological Interpretation: Reviewed by me, Teleradiologist Report - Risk of complications Low Risk: Low risk of morbidity from additional dx testing or treatment - Departure Departure Disposition: Home Clinical Impression: Postoperative ecchymosis Condition: Stable Critical Care Time: No Referrals: MICHAEL CHAUHAN NP [Primary Care Provider] - Follow up/PCP as directed Additional Instructions: Continue your antibiotics and pain medicine as prescribed. Follow your postoperative instructions. Call your surgeons office tomorrow, 03/25/2023, to obtain a follow-up appointment and for further instructions.
[2023-03-24 22:00] VITALS: TEMP 97.3; O2SAT 95
[2023-03-24 23:06] VITALS: BP 116/63; PULSE 87; RESP 18
--- NOTE | 2023-03-25 08:38 | XRAY ---
Indication: Calf pain and swelling. Status post knee surgery 4 days. Two-dimensional sonogram and color Doppler imaging of the major venous vessels of the right leg performed. Comparison: None No thrombus seen in the examined deep venous vessels of the right leg including greater saphenous vein. Veins demonstrate normal compressibility. Venous waveforms are normal with and without augmentation. Impression: Right leg negative for DVT. Comment: Preliminary report was given.
== END 2023-03-24 23:10 | disposition home or self-care (01) ==
LOC: ED 21:33
DX: L76.32 Postprocedural hematoma of skin and subcutaneous tissue following other procedure (principal); M79.604 Pain in right leg; Z79.891 Long term (current) use of opiate analgesic; Z79.899 Other long term (current) drug therapy
CPT/HCPCS: 93971; 99282

== ENCOUNTER 2023-09-15 18:35 | Emergency (ER) | payer MEDICARE ==
[2023-09-15 18:50] VITALS: TEMP 97.9
--- NOTE | 2023-09-15 20:02 | ERPHSYRPT ---
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 Patient reports she missed a step in her porch and fell forward, hitting her right knee and twisted ankle, tried to catch herself with outstretched left hand/wrist. Patient was able to get up and ambulate but having pain in the knee and left wrist. No tingling or numbness in the foot/hand. Did not hit her head. No loss of consciousness. Allergies/Adverse Reactions: citric acid [From [facility]] Adverse Reaction (Intermediate, Verified 09/15/23 18:51) Vomiting sodium bicarbonate [From [facility]] Adverse Reaction (Intermediate, Verified 09/15/23 18:51) Vomiting Home Medications: ALPRAZolam [Xanax 0.5 mg] 0.5 mg PO TIDPRN PRN 02/03/15 [History] Duloxetine HCl 30 mg [Cymbalta 30 MG Capsule] 60 mg PO DAILY 02/03/15 [History] Albuterol Sulfate [Albuterol Sulfate Hfa] 2 inh PO Q46H PRN 09/15/23 [History] Bupropion HCl 150 mg Sr [Wellbutrin SR 150 MG] 150 mg PO BID 09/15/23 [History] Ergocalciferol (Vitamin D2) [Vitamin D2] 1,250 mcg PO WEEKLY 09/15/23 [History] Levothyroxine Sodium 25 mcg PO DAILY 09/15/23 [History] Metoprolol Succinate 25 mg Xl* [Toprol-Xl 25MG Tablets] 25 mg PO BID 09/15/23 [History] Tramadol HCl 50 mg [Ultram 50 mg] 50 mg PO TID PRN 09/15/23 [History] Hx Tetanus, Diphtheria Vaccination/Date Given: No (2-3 years ago) Hx Influenza Vaccination/Date Given: No Hx Pneumococcal Vaccination/Date Given: No Travel Risk - International Travel Have you traveled outside of the country in past 3 weeks: No - Emerging Infectious Disease Are you exhibiting symptoms associated with any current EIDs: No - Review of Systems Constitutional: No Symptoms Ears, Nose, & Throat: No Symptoms Respiratory: No Symptoms Cardiac: No Symptoms Abdominal/Gastrointestinal: No Symptoms Musculoskeletal: Arthralgias, Fall, Joint Redness, Joint Pain, Joint Swelling Skin: No Symptoms Neurological: No Symptoms Endocrine: No Symptoms Hematologic/Lymphatic: No Symptoms - Past Medical History Pertinent Past Medical History: Yes Neurological History: No Pertinent History ENT History: Cataracts Cardiac History: High Cholesterol, Hypertension Respiratory History: Asthma Endocrine Medical History: Hypothyroidism, Liver Disease, Other Musculoskeletal History: Fibromyalgia, Osteoarthritis GI Medical History: No Pertinent History History: No Pertinent History Psycho-Social History: Depression Female Reproductive Disorders: No Pertinent History Other Medical History: STAGE 3 KIDNEY DISEASE, FATTY LIVER DISEASE, ANXIETY, DEPRESSION. HX LEFT TOTAL KNEE ABOUT 10 YEARS AGO. OTHER SX HX: HYSTERECTOMY - Past Surgical History Past Surgical History: Yes Neuro Surgical History: No Pertinent History Cardiac: No Pertinent History Respiratory: No Pertinent History Gastrointestinal: No Pertinent History Genitourinary: No Pertinent History Musculoskeletal: Orthopedic Surgery Female Surgical History: Hysterectomy, Tubal Ligation Other Surgical History: left knee replacement x2, Left IOL - Social History Smoking Status: Never smoker Exposure to second hand smoke: No Drug Use: none Patient Lives Alone: No - Nursing Vital Signs Nursing Vital Signs: Initial Vital Signs Temperature 97.9 F 09/15/23 18:40 Pulse Rate 80 09/15/23 18:40 Blood Pressure 116/81 09/15/23 18:40 O2 Sat by Pulse Oximetry 100 09/15/23 18:40 Pain Scale Pain Intensity 7 - [place] Coma Score Best Eye Response ([place]): (4) open spontaneously Best Verbal Response ([place]): (5) oriented Best Motor Response ([place]): (6) obeys commands [place] Total: 15 - Physical Exam General Appearance: no apparent distress, alert Head Injury: no evidence of injury Eye Exam: PERRL/EOMI, eyes nml inspection ENT Exam: airway nml, dental injury, No evidence of ENT injury Neck Exam: supple, full range of motion, normal alignment Respiratory/Chest Exam: normal breath sounds, respiratory distress, No chest tenderness Cardiovascular Exam: normal heart sounds, regular rate/rhythm Gastrointestinal Exam: soft, No tenderness Back Exam: normal inspection, normal range of motion Extremity Exam: other (Right knee erythema/contusion with mild swelling and minimal tenderness. No [place] meant. Intact range of motion. Minimal tende rness right ankle. Tenderness on the left medial wrist and proximal hand. Intact distal neurovascular. Intact range of motion of the knee ankle and wrist.) Neurologic Exam: alert, oriented x 3, cooperative Skin Exam: normal color SpO2 Interpretation: normal SpO2: 100 O2 Delivery: Room Air Ordered Tests: Active Orders 24 hr Category Date Time Status ANKLE (3 VIEWS) Stat Exams 09/15/23 18:47 Taken KNEE (MIN 4 VIEW) Stat Exams 09/15/23 18:47 Taken WRIST (MIN 3 VIEWS) Stat Exams 09/15/23 18:47 Taken - Progress Progress: unchanged Progress Note: 09/15/23 20:00 63-year-old is evaluated in the ER for fall after she missed a step. Did not hit her head. She has a contusion right knee and mild tenderness of right ankle and wrist. I have offered her pain medication which she declined. X-ray knee/ankle and right wrist are negative for acute fracture dislocation reviewed by me, official report is pending. I believe patient has a knee contusion and is sprain on the left wrist. She is placed in a knee Guido wrap and wrist splint, recommended taking Tylenol ibuprofen as needed and outpatient orthopedics follow-up. Discussed signs symptoms of worsening needing return to ER which she seems understanding. Stable for discharge. Counseled pt/family regarding: diagnosis, need for follow-up, rad results Medical Desision Making - Diagnostic Testing Diagnostic test were ordered, analyzed, and reviewed by me: Yes Radiological Interpretation: Interpreted by me, Reviewed by me - Departure Departure Disposition: Home Clinical Impression: Knee contusion, Wrist sprain, Fall Condition: Stable Critical Care Time: No Referrals: MICHAEL CHAUHAN NP [Primary Care Provider] - Follow up with PCP 1 day DANAY LANCASTER MD [ACTIVE STAFF] - Follow up other (Call for appointment for reevaluation) Instructions: Common Wrist Injuries ED Additional Instructions: Intermittent ice application. Take Tylenol/tramadol which you have at home as needed. Avoid exertional activities. Follow-up with primary care/orthopedics for reevaluation. Return to ER for any worsening.
[2023-09-15 20:11] VITALS: BP 114/67; PULSE 73; RESP 16; O2SAT 99
--- NOTE | 2023-09-16 08:56 | XRAY ---
Indication: Pain following fall. Comparison: None 3 view left wrist demonstrates advanced 1st metacarpal multangular degenerative changes, faint radioulnar carpal degenerative chondrocalcinosis, and tiny lunate bone cysts. No other bony, articular, or soft tissue abnormalities.
--- NOTE | 2023-09-16 08:56 | XRAY ---
Indication: Pain following fall. Comparison: None 3 view right ankle demonstrates mild talotibial degenerative changes, tiny spurring tip medial malleolus, and incidental tiny navicular accessory ossicle. No other bony, articular, or soft tissue abnormalities.
--- NOTE | 2023-09-16 08:56 | XRAY ---
Indication: Pain following fall. Comparison: None 4 view right knee demonstrates total knee arthroplasty with intact prosthesis/articulation and tiny posterior heterotopic ossification. No other bony, articular, or soft tissue abnormalities.
== END 2023-09-15 20:16 | disposition home or self-care (01) ==
LOC: ED 18:35
DX: S80.01XA Contusion of right knee, initial encounter (principal); S63.502A Unspecified sprain of left wrist, initial encounter; W10.8XXA Fall (on) (from) other stairs and steps, initial encounter; Y92.007 Garden or yard of unspecified non-institutional (private) residence as the place of occurrence of the external cause; M25.571 Pain in right ankle and joints of right foot; E78.5 Hyperlipidemia, unspecified; I12.9 Hypertensive chronic kidney disease with stage 1 through stage 4 chronic kidney disease, or unspecified chronic kidney disease; N18.30 Chronic kidney disease, stage 3 unspecified; Z79.891 Long term (current) use of opiate analgesic; Z79.899 Other long term (current) drug therapy
CPT/HCPCS: 73110; 73564; 73610; 99283; L3908